=== PATIENT | female | born 1955 | race Caucasian/White ===

== ENCOUNTER 2018-06-16 00:06 | Inpatient (IN) ==
[2018-06-16] MEDS ORDERED: Naloxone 0.4 MG/ML INJ IVP PRN (03:57)
--- NOTE | 2018-06-16 04:03 | Internal Med History&Physical ---
Date of Encounter: 06/16/18 Time of Encounter: 04:03 Internal Medicine - H&P: HPI Chief complaint: Hypoxemia/lower extremity edema History of present illness: Ms. Abad is a 62 year old female with a past medical history of COPD who initially presented to [facility] with complaints of 3 weeks of shortness of breath and lower extremity edema.. On arrival patient was noted to be hypoxemic with O2 saturation of 55% on room air. Patient was immediately placed on BiPAP with improvement in O2 saturations to 90%. Found to have a BNP 24,000. X-ray results showed evidence of pulmonary vascular congestion and early fluid overload. Patient was given one-time dose of Lasix 20 mg and Kayexalate for a hyperkalemia of 6.0. Patient does report previous 20 pack smoking history. She continues to smoke 7-8 cigarettes per day. Patient admits to drinking 6-8 beers daily. Patient also reports poor appetite and difficulty swallowing. Patient otherwise denies any fever, chills, shortness of breath, nausea, vomiting, chest pain or diarrhea. On my assessment, patient appeared thin and malnourished in appearance on BiPAP in no acute respiratory distress. We took the patient off BiPAP and she did well on nasal cannula. Past Med Surg Social Fam HX - Past Medical History Medical history: COPD Psychiatric history: depression - Past Surgical History Additional surgical history: carpal tunnel surgery, septal deviation surgery, glaucoma surgery - Social History Smoking Status: Current every day smoker Packs per day: 1/2 Smokeless Tobacco Status: No Alcohol use: occasionally, recent Drug use: none - Family History Mother Hx Family Respiratory Disorders: Yes (COPD) Internal Medicine - H&P: Meds Allergy/AdvReac Type Severity Reaction Status Date / Time No Known Drug Allergies Allergy Unknown unknown Verified 06/16/18 03:07 All Systems PM: A 10-system review of systems was performed and is negative for pertinent findings except as documented above in the HPI. - Constitutional Constitutional: no chills, no fever(s), no night sweats - EENT Eyes: no change in vision, no discharge, no pain, no photophobia Ears: no ear discharge, no ear pain, no tinnitus Nose, mouth and throat: no dysphagia, no nasal discharge, no neck pain, no sore throat - Cardiovascular Cardiovascular ROS IM: no chest pain, no diaphoresis, no dyspnea, no lightheadedness, no palpitations, no syncope - Respiratory Respiratory: no cough, no dyspnea, no wheezing, no excessive phlegm production - Gastrointestinal Gastrointestinal: no abdominal pain, no diarrhea, no hematemesis, no hematochezia, no melena, no nausea, no vomiting - Genitourinary Genitourinary: no change in urinary stream, no dysuria, no flank pain, no hematuria - Musculoskeletal Musculoskeletal ROS IM: no numbness, no tingling - Integumentary Integumentary IM: no rash, no unusual bruising - Neurological Neurological ROS: no confusion, no convulsions, no focal weakness, no numbness, no tingling, no tremor(s) - Hematologic/Lymphatic Hematologic/Lymphatic: no easy bruising - Constitutional Vitals: Temp Pulse Resp BP Pulse Ox 97.8 F 74 16 106/70 95 06/16/18 02:34 06/16/18 02:34 06/16/18 02:34 06/16/18 02:34 06/16/18 02:34 Exam: General: Alert and oriented 3 Skin:Normal color, no rash, no lesions. HEENT:EOM, pupils equal, round and reactive. Cardiovascular:Normal S1 & S2, no rubs, murmurs or gallops. No JVD. Pulse regular. Lungs:Normal breath sounds, no wheezes or crackles. Abdomen:Soft, non-tender, no rigidity. Extremities: 1+ pitting edema bilaterally Neurological:Normal cognition and motor skills. Pulses:Carotid and radial pulses normal +2. Rest of the physical exam is non contributory Internal Med - H&P Results - Labs CBC & Chem 7: 06/16/18 04:31 06/16/18 04:31 - Assessment and Plan (1) Acute respiratory failure with hypoxia Current Visit: Yes Status: Acute Assessment and plan: Patient found to be hypoxemic on room air saturating and 50% in the setting of worsening lower extremity edema and increased vascular congestion on chest x-ray with a BNP of greater than 24,000. Concern for new onset congestive heart failure. -Patient taken off BiPAP and is saturating well on 4 L nasal cannula -Continue supportive care and treat for possible CHF exacerbation (2) Hyperkalemia Current Visit: Yes Status: Acute Assessment and plan: Patient found to have a potassium of 6 on arrival to the ED at [facility] . No reports of EKG changes. Patient was given Kayexalate. Repeat potassium at [facility] now 4.1. -Continue to monitor (3) Acute congestive heart failure Current Visit: Yes Status: Acute Assessment and plan: Patient's clinical presentation concerning for acute congestive heart failure of unclear etiology in the setting of increased lower extremity edema, dyspnea, elevated BNP greater than 24,000 and chest x-ray showing vascular congestion. Etiology includes ischemic cardiomyopathy given her mildly elevated troponin of 0.12, smoking and alcohol history. Patient denies any chest pain at this time and is in no respiratory distress. -Strict I's and O's; daily weights; 1500 mL fluid restriction -Patient received 2 doses of 20 mg of Lasix IV push with improvement in respiratory status. We will hold any further Lasix now given patient's small body habitus. -Echocardiogram -We will check TSH given patient's reports of palpitations -Cardiology consult Qualifiers: Heart failure type: unspecified Qualified Code(s): I50.9 - Heart failure, unspecified (4) Elevated troponin Current Visit: Yes Status: Acute Assessment and plan: Patient presented with a elevated troponin of 0.12. Subsequent troponins were 0.09 and 0.12. Patient denies any chest pains however repeat EKG here shows new T-wave inversions in leads 2 and 3. Patient given a loading dose of aspirin -We will start patient on heparin drip -Echocardiogram -Cardiology input appreciated (5) COPD (chronic obstructive pulmonary disease) Current Visit: Yes Status: Acute Assessment and plan: Patient reports 20 back smoking history. She continues to smoke 7-8 cigarettes per day no evidence of wheezing on examination. Low suspicion for exacerbation at this time. -We will continue with scheduled DuoNeb's for now Qualifiers: Emphysema type: unspecified Qualified Code(s): J43.9 - Emphysema, unspecified (6) Dysphagia Current Visit: Yes Status: Acute Assessment and plan: Patient reports decreased appetite secondary to dysphasia. -Consider speech and swallow evaluation versus barium swallow. -Patient will likely need door to door sales representative consult given she is malnourished in appearance. Qualifiers: Dysphagia type: unspecified Qualified Code(s): R13.10 - Dysphagia, unspecified (7) History of alcohol use Current Visit: Yes Status: Acute Assessment and plan: Patient reports drinking 3-6 beers a day -We will place patient on [place] protocol -Daily thiamine and B12 vitamin - Time Spent With Patient Total time spent is greater than 50% in coordination of care (as documented) at patient's floor/unit and/or counseling patient:
[2018-06-16 04:53] LABS: Basophils % 0.2 %
[2018-06-16 04:55] LABS: Hematocrit 43.8 % (35.3-44.9); Hemoglobin 14.7 g/dL (11.5-15.4); Immature Granulocytes % 0.8 % (0-4); Immature Platelets 4.7 % (1.1-6.1); Lymphocytes # 0.2 K/mcL (0.6-4.6); Mean Corpuscular HGB Conc 33.6 g/dL (31.6-35.5); Mean Corpuscular Hemoglobin 32.5 pg (28.0-33.3); Mean Corpuscular Volume 96.7 fL (83.0-100.0); Mean Platelet Volume 10.3 fL (9.4-12.4); Monocytes # 0.2 K/mcL (0.0-1.3); Monocytes % 4.3 %; Red Blood Count 4.53 M/mcL (3.82-4.97); Red Cell Distribution Width 13.7 % (11.5-14.5); Segmented Neutrophils % 91.7 %
[2018-06-16 05:10] LABS: INR 1.2; Prothrombin Time 13.4 Seconds (9.4-12.1)
[2018-06-16 05:12] LABS: Activated Partial Thrombo Time 26.1 Seconds (26.0-36.0)
[2018-06-16 05:18] LABS: Alanine Aminotransferase 43 Units/L (7-52); Albumin 3.3 g/dL (3.5-5.7); Albumin/Globulin Ratio 1.7 (1.1-2.2); Alkaline Phosphatase 55 Units/L (34-104); Aspartate Amino Transferase 60 Units/L (13-39); BUN/Creatinine Ratio 28 (6-26); Bilirubin,Total 0.8 mg/dL (0.3-1.0); Blood Urea Nitrogen 25 mg/dL (8-23); Calcium 8.4 mg/dL (8.6-10.3); Carbon Dioxide 33 mEq/L (23-29); Chloride 87 mEq/L (98-107); Glucose 162 mg/dL (70-105); Osmolality,Calculated 280 (280-300); Potassium 4.1 mEq/L (3.5-5.1); Sodium 131 mEq/L (136-145); Total Protein 5.3 g/dL (6.4-8.9); Troponin I 0.12 ng/mL (< 0.04); eGFR For Non-African Americans > 60 (> 60)
[2018-06-16 05:23] LABS: Neutrophils # 4.7 K/mcL (1.6-8.9); Platelet Count 82 K/mcL (140-400)
[2018-06-16] MEDS ORDERED: *HR* Heparin 5,000 UNIT/ML VIAL SQ SCH (06:00)
[2018-06-16] MEDS ORDERED: Aspirin 325 MG TABLET PO ONE (06:08)
[2018-06-16] MEDS ORDERED: *HR* LORazepam 2 MG/ML VIAL IVP PRN ×3 (06:28)
[2018-06-16] MEDS ORDERED: *HR* Promethazine 25 MG/ML VIAL IVP PRN (06:28)
[2018-06-16 07:33] LABS: Amylase 36 Units/L (29-103); Ethanol < 10 mg/dL (Less than 10); Lipase 24 Units/L (11-82)
[2018-06-16] MEDS ORDERED: *HR* Heparin 5,000 UNIT/ML VIAL IVP ONE (08:13)
[2018-06-16] MEDS ORDERED: *HR* Heparin 5,000 UNIT/ML VIAL IVP PRN ×2 (08:13)
[2018-06-16] MEDS ORDERED: Heparin 25,000 UNIT/250 ML D5W 25,000 UNIT/250 ML IV.SOLN IVC SCH (08:15)
[2018-06-16 08:59] LABS: Thyroid Stimulating Hormone 1.103 mcIU/mL (0.340-5.600)
[2018-06-16] MEDS ORDERED: Aspirin Enteric Coated 325 MG Tablet PO SCH (09:00)
[2018-06-16 10:04] LABS: Hematocrit 42.7 % (35.3-44.9); Hemoglobin 14.2 g/dL (11.5-15.4); Immature Platelets 4.5 % (1.1-6.1); Mean Corpuscular HGB Conc 33.3 g/dL (31.6-35.5); Mean Corpuscular Hemoglobin 32.2 pg (28.0-33.3); Mean Corpuscular Volume 96.8 fL (83.0-100.0); Red Blood Count 4.41 M/mcL (3.82-4.97); Red Cell Distribution Width 13.9 % (11.5-14.5)
[2018-06-16 10:10] LABS: INR 1.1; Prothrombin Time 12.9 Seconds (9.4-12.1)
[2018-06-16 10:11] LABS: Heparin anti-factor XA UFH 0.05 IU/mL (0.30-0.70)
[2018-06-16] MEDS: Folic Acid 1 MG TABLET PO SCH (10:11)
[2018-06-16] MEDS: Thiamine (B-1) 100 MG TABLET PO SCH (10:11)
[2018-06-16] MEDS: Vitamin B Complex/Vit C/Vit E 1 EACH TABLET PO SCH (10:11)
[2018-06-16] MEDS: Ipratropium/Albuterol Neb 3 ML IH SCH ×5 (10:19→23:45)
--- NOTE | 2018-06-16 11:11 | Cardiology Consult Note ---
Date of Encounter: 06/16/18 Time of Encounter: 09:00 Assessment and Plan (1) Acute respiratory failure with hypoxia Current Visit: Yes Status: Acute Suspect dyspnea most likely related to significant underlying lung disease. Further tx per primary service. Will schedule for echocardiogram to evaluate LV/RV function, pulmonary pressures. Continue gentle diuresis. (2) Palpitations Current Visit: Yes Status: Acute Will monitor for arrhythmias on telemetry. (3) Elevated troponin Current Visit: Yes Status: Acute Suspect demand ischemia in setting of profound hypoxia. Doubt ACS. Will review echocardiogram. (4) COPD (chronic obstructive pulmonary disease) Current Visit: Yes Status: Chronic Further tx per primary service. Qualifiers: Emphysema type: unspecified Qualified Code(s): J43.9 - Emphysema, unspecified Discussion w patient/family: The assessment and plan as outlined above was discussed with the patient and/or family members who expressed understanding and agreement. All questions were answered. Thank you for involving us in the care of your patient. Please call with any questions. History of Present Illness Consult date: 06/16/18 Requesting physician: Iram Nina Consult reason: possible CHF Chief complaint: dyspnea, LE edema History of present illness: Ms. Abad is a 62 year old female with hx COPD presents as transfer from [facility] for evaluation of dyspnea. Pt states that yesterday she "just couldn't stand up, too weak." drove her to [facility] where pt was found to be profoundly hypoxic with sats of 55% on RA per reports. Pt placed on biPAP with improvement of sats to 90%. BNP noted to be elevated to 24,000, K 6.0. CXR repoted to have pulmonary vascular congestion and early fluid overload. Pt diuresed, given Kayexalate and transferred for further evaluation/tx. BNP on arrival here 1715. Pt states no improvement in LE edema or dyspnea with Lasix. Pt has noted worsening LE edema over past 3 weeks. Denies weight gain, CP, orthopnea, PND. Has also noted palpitations, feeling heart race at times. No associated lightheadedness, syncope. Denies prior cardiac history, testing. Past Med Surg Social Fam HX - Past Medical History Medical history: COPD Psychiatric history: depression - Past Surgical History Additional surgical history: carpal tunnel surgery, septal deviation surgery, glaucoma surgery - Social History Smoking Status: Current every day smoker Packs per day: 1/2 Smokeless Tobacco Status: No Alcohol use: occasionally, recent Drug use: none - Family History Mother Hx Family Respiratory Disorders: Yes (COPD) Medications and Allergies Allergy/AdvReac Type Severity Reaction Status Date / Time No Known Drug Allergies Allergy Unknown unknown Verified 06/16/18 03:07 All Systems Review: The remainder of the systems were reviewed and are negative - Cardiovascular Cardiovascular: as per HPI Physical Examination Vital Signs, Last 4 Hours Temp Pulse Resp BP Pulse Ox 06/16/18 07:15 98.5 F 92 18 109/72 99 General: Other (pt with conversational dyspnea, mild resp distress on NC, thin, appears chronically ill) HEENT: Atraumatic, Normocephaly, Mucus Membranes Moist Neck: No JVD, Normal carotid pulses Cardiac: Reg Rate and Rhythm, Normal S1 and S2, No Murmur Lungs: Other (diffuse exp wheezes throughout lung pulliam with decreased BS) Neuro: Alert and responsive, No focal deficits noted Abdomen: Soft, Non-Tender Skin: No rashes noted on visualized skin Musculoskeletal: No Chest Wall Tenderness Extremities: No Clubbing, No Cyanosis, Other (1+ pitting b/l LE edema to mid calf) Results 06/16/18 09:48 06/16/18 04:31 Lab Results 06/16/18 06/16/18 06/16/18 04:31 04:31 04:31 WBC 5.1 Hgb 14.7 Hct 43.8 Plt Count 82 L INR 1.2 APTT 26.1 Sodium 131 L Potassium 4.1 Chloride 87 L Carbon Dioxide 33 H BUN 25 H Creatinine 0.89 Glucose 162 H Calcium 8.4 L Total Bilirubin 0.8 AST 60 H ALT 43 Alkaline Phosphatase 55 Troponin I 0.12 H* B-Natriuretic Peptide Amylase Lipase TSH 1.103 06/16/18 06/16/18 06/16/18 06:45 08:25 09:48 WBC 6.1 Hgb 14.2 Hct 42.7 Plt Count 81 L INR APTT Sodium Potassium Chloride Carbon Dioxide BUN Creatinine Glucose Calcium Total Bilirubin AST ALT Alkaline Phosphatase Troponin I B-Natriuretic Peptide 1715 H Amylase 36 Lipase 24 TSH 06/16/18 09:48 WBC Hgb Hct Plt Count INR 1.1 APTT Sodium Potassium Chloride Carbon Dioxide BUN Creatinine Glucose Calcium Total Bilirubin AST ALT Alkaline Phosphatase Troponin I B-Natriuretic Peptide Amylase Lipase TSH - EKG Interpretation EKG results cardiology: personally reviewed (NSR with PACs, nonspecific ST-T wave changes in inferior leads- cannot exclude ischemia) Consult Discharge Plan - Plan Referrals: Dina Connors MD [Primary Care Provider] - (Unable to schedule follow up appointment due to office being closed on the weekend. Please call Monday to schedule hospital follow for 7-10 days from date of discharge. )
--- NOTE | 2018-06-16 11:28 | Internal Med Progress Note ---
Hospitalist Progress Note - Encounter Date of Encounter: 06/16/18 Time of Encounter: 11:47 - Subjective Interval History: at bedside. Patient states she is breathing better but fatigued from days of SOB. Denies CP, denies palpitations, n/v. Has some stomach upset. - Exam Vitals: Temp Pulse Resp BP Pulse Ox 98.5 F 92 18 109/72 99 06/16/18 07:15 06/16/18 07:15 06/16/18 07:15 06/16/18 07:15 06/16/18 07:15 Exam: General: Alert and oriented 3 Skin:Normal color, no rash, no lesions. HEENT:EOM, pupils equal, round and reactive. Cardiovascular:Normal S1 & S2, no rubs, murmurs or gallops. No JVD. Pulse regular. Lungs:Normal breath sounds, no wheezes or crackles. Abdomen:Soft, non-tender, no rigidity. Extremities: 1+ pitting edema bilaterally Neurological:Normal cognition and motor skills. Pulses:Carotid and radial pulses normal +2. Rest of the physical exam is non contributory - Assessment and Plan (1) Acute respiratory failure with hypoxia Current Visit: Yes Status: Acute Assessment and Plan: Patient found to be hypoxemic on room air saturating and 50% in the setting of worsening lower extremity edema and increased vascular congestion on chest x-ray with a BNP of greater than 24,000. Concern for new onset congestive heart fail ure. -Patient taken off BiPAP and is saturating well on 4 L nasal cannula -Continue supportive care and treat for possible CHF exacerbation Also COPD component - Continue IV Lasix, - Prednisone, Duo Nebs - Fluid restriction diet - Cardiology following. (2) Hyperkalemia Current Visit: Yes Status: Acute Assessment and Plan: Patient found to have a potassium of 6 on arrival to the ED at [facility] . No rep orts of EKG changes. Patient was given Kayexalate. Repeat potassium at [facility] now 4.1. -Continue to monitor (3) Acute congestive heart failure Current Visit: Yes Status: Acute Assessment and Plan: Patient's clinical presentation concerning for acute congestive heart failure of unclear etiology in the setting of increased lower extremity edema, dyspnea, elevated BNP greater than 24,000 and chest x-ray showing vascular congestion. Etiology includes ischemic cardiomyopathy given her mildly elevated troponin of 0.12, smoking and alcohol history. Patient denies any chest pain at this time and is in no respiratory distress. -Strict I's and O's; daily weights; 1500 mL fluid restriction -Patient received 2 doses of 20 mg of Lasix IV push with improvement in respiratory status. Will continue Lasix tonight. -Echocardiogram -Cardiology consult (4) Elevated troponin Current Visit: Yes Status: Acute Assessment and Plan: Patient presented with a elevated troponin of 0.12. Subsequent troponins were 0.09 and 0.12. Patient denies any chest pains however repeat EKG here shows new T-wave inversions in leads 2 and 3. Patient given a loading dose of aspirin -We will start patient on heparin drip - Echocardiogram -Cardiology input appreciated (5) COPD (chronic obstructive pulmonary disease) Current Visit: Yes Status: Chronic Assessment and Plan: Patient reports 20 back smoking history. She continues to smoke 7-8 cigarettes per day no evidence of wheezing on examination. Low suspicion for exacerbation at this time. -We will continue with scheduled DuoNeb's for now (6) Dysphagia Current Visit: Yes Status: Acute Assessment and Plan: Patient reports decreased appetite secondary to dysphasia. -Consider speech and swallow evaluation versus barium swallow. -Patient will likely need central office maintainer consult given she is malnourished in appearance. (7) History of alcohol use Current Visit: Yes Status: Acute Assessment and Plan: Patient reports drinking 3-6 beers a day -We will place patient on [place] protocol -Daily thiamine and B12 vitamin - Time Spent with Patient Total time spent is greater than 50% in coordination of care (as documented) at patient's floor/unit and/or counseling patient: Internal Medicine: Result - Labs CBC & Chem 7: 06/16/18 09:48 06/16/18 04:31 Labs: Short CBC 06/16/18 06/16/18 Range/Units 04:31 09:48 WBC 5.1 6.1 (4.3-11.1) K/mcL Hgb 14.7 14.2 (11.5-15.4) g/dL Hct 43.8 42.7 (35.3-44.9) % Plt Count 82 L 81 L (140-400) K/mcL Neutrophils # 4.7 (1.6-8.9) K/mcL BMP 06/16/18 04:31 Sodium 131 L Potassium 4.1 Chloride 87 L Carbon Dioxide 33 H BUN 25 H Creatinine 0.89 Glucose 162 H Calcium 8.4 L Cardiac Enzymes 06/16/18 Range/Units 04:31 Troponin I 0.12 H* (< 0.04) ng/mL Liver Function 06/16/18 Range/Units 04:31 Total Bilirubin 0.8 (0.3-1.0) mg/dL AST 60 H (13-39) Units/L ALT 43 (7-52) Units/L Alkaline Phosphatase 55 (34-104) Units/L Albumin 3.3 L (3.5-5.7) g/dL - ABG Interpretation ABG results: PT/INR, D-dimer PT 12.9 Seconds (9.4-12.1) H 06/16/18 09:48 Consult Discharge Plan - Plan Referrals: Dina Connors MD [Primary Care Provider] - (Unable to schedule follow up appointment due to office being closed on the weekend. Please call Monday to schedule hospital follow for 7-10 days from date of discharge. ) (3) Acute congestive heart failure Qualifiers: Heart failure type: unspecified Qualified Code(s): I50.9 - Heart failure, unspecified (5) COPD (chronic obstructive pulmonary disease) Qualifiers: Emphysema type: unspecified Qualified Code(s): J43.9 - Emphysema, unspecified (6) Dysphagia Qualifiers: Dysphagia type: unspecified Qualified Code(s): R13.10 - Dysphagia, unspecified
[2018-06-16] MEDS: predniSONE 20 MG TABLET PO SCH (12:41)
[2018-06-16] MEDS: Furosemide 20 MG/2 ML VIAL IVP SCH (20:14)
[2018-06-17] MEDS: Ipratropium/Albuterol Neb 3 ML IH SCH ×5 (04:20→20:11)
[2018-06-17 05:43] LABS: Mean Corpuscular Volume 99.8 fL (83.0-100.0)
[2018-06-17 05:45] LABS: Hematocrit 40.6 % (35.3-44.9); Hemoglobin 13.4 g/dL (11.5-15.4); Immature Granulocytes % 0.6 % (0-4); Immature Platelets 4.9 % (1.1-6.1); Lymphocytes # 0.2 K/mcL (0.6-4.6); Lymphocytes % 2.3 %; Mean Corpuscular Hemoglobin 32.9 pg (28.0-33.3); Mean Platelet Volume 9.9 fL (9.4-12.4); Monocytes # 1.1 K/mcL (0.0-1.3); Monocytes % 12.4 %; Neutrophils # 7.4 K/mcL (1.6-8.9); Red Blood Count 4.07 M/mcL (3.82-4.97); Red Cell Distribution Width 14.5 % (11.5-14.5); Segmented Neutrophils % 84.7 %
[2018-06-17 05:46] LABS: Platelet Count 77 K/mcL (140-400)
[2018-06-17 06:03] LABS: BUN/Creatinine Ratio 30 (6-26); Blood Urea Nitrogen 27 mg/dL (8-23); Calcium 8.8 mg/dL (8.6-10.3); Carbon Dioxide 39 mEq/L (23-29); Chloride 88 mEq/L (98-107); Glucose 169 mg/dL (70-105); Osmolality,Calculated 287 (280-300); Potassium 3.7 mEq/L (3.5-5.1); Sodium 134 mEq/L (136-145); eGFR For Non-African Americans > 60 (> 60)
--- NOTE | 2018-06-17 10:41 | Event Note ---
Date of Encounter: 06/17/18 Time of Encounter: 10:37 - Cardiology Event Note TTE with LVEF 60%. Mild left ventricular diastolic dysfunction. Mildly dilated right ventricle with mild RV hypokinesis. Mild to moderate biatrial dilatation. Severely calcified aortic valve with moderate-severe aortic stenosis and moderate aortic regurgitation. Mild aortic root dilatation ascending aorta dilatation 3.8 cm. Moderate to severe tricuspid regurgitation. Severe pulmonary hypertension, RVSP 92 mmHg. All wall segments showed normal motion. Discussed and reviewed with Dr.Jennifer Hussein, severe pulmonary hypertension likely culprit of lower extremity edema. Recommend gentle diuresis. Avoid over diuresis and hypotension. Regarding moderate-severe , no urgent indication for valve replacement at this time, can be managed in outpatient setting. Cardiology will sign off, will arrange outpatient follow up.
[2018-06-17] MEDS: predniSONE 20 MG TABLET PO SCH (10:50)
[2018-06-17] MEDS: Vitamin B Complex/Vit C/Vit E 1 EACH TABLET PO SCH (10:51)
[2018-06-17] MEDS: Thiamine (B-1) 100 MG TABLET PO SCH (10:51)
[2018-06-17] MEDS: Furosemide 20 MG/2 ML VIAL IVP SCH ×2 (10:51→20:35)
[2018-06-17] MEDS: Folic Acid 1 MG TABLET PO SCH (10:51)
--- NOTE | 2018-06-17 16:10 | Internal Med Progress Note ---
Hospitalist Progress Note - Encounter Date of Encounter: 06/17/18 Time of Encounter: 16:08 - Subjective Interval History: No acute events. at bedside. Reports she will desat with minimal activity but breathing is overall better than yesterday. Patient admits to SOB on minimal exertion. Denies CP, N/V, palpitations, diaphoresis. - Exam Vitals: Temp Pulse Resp BP Pulse Ox 98.3 F 93 16 119/73 96 06/17/18 12:04 06/17/18 12:04 06/17/18 12:04 06/17/18 12:04 06/17/18 12:04 Exam: General: Alert and oriented 3 Skin:Normal color, no rash, no lesions. HEENT:EOM, pupils equal, round and reactive. Cardiovascular: RRR, no mrg Lungs:Normal breath sounds, faint end exp wheezing. Abdomen:Soft, non-tender, no rigidity. Extremities: 1+ pitting edema bilaterally Neurological:Normal cognition and motor skills. Pulses: Carotid and radial pulses normal +2. - Assessment and Plan (1) Acute respiratory failure with hypoxia Current Visit: Yes Status: Acute Assessment and Plan: Patient found to be hypoxemic on room air saturating and 50% in the setting of worsening lower extremity edema and increased vascular congestion on chest x- ray. Symptoms and signs consistent with COPD and CHF exacerbations. Patient taken off BiPAP and is saturating well on 4 L nasal cannula. Echocardiogram with severe pulmonary hypertension RVSP 92 mmHg, and severely calcified aortic valve with mod/severe aortic stenosis and mod aortic regurgitation. Cardiology did evaluate patient as well and will sign off since likely this is from severe pulm htn. - Prednisone, Duo Nebs - Fluid restriction diet - Continue IV Lasix as BP and renal function tolerates. (2) Hyperkalemia Current Visit: Yes Status: Acute Assessment and Plan: Resolved (3) Acute congestive heart failure Current Visit: Yes Status: Acute Assessment and Plan: Plan as above. (4) Elevated troponin Current Visit: Yes Status: Acute Assessment and Plan: Patient presented with a elevated troponin of 0.12. Subsequent troponins were 0.09 and 0.12. Patient denies any chest pains however repeat EKG here shows new T-wave inversions in leads 2 and 3. Patient given a loading dose of aspirin Likely not ACS and so heparin drip discontinued. Echocardiogram with severe pulmonary hypertension RVSP 92 mmHg, and severely calcified aortic valve with mod/severe aortic stenosis and mod aortic regurgitation. Continue treatment of CHF exacerbation. (5) COPD (chronic obstructive pulmonary disease) Current Visit: Yes Status: Chronic Assessment and Plan: Does have some wheezing on exam today, continue Prednisone and Duo Nebs (6) Dysphagia Current Visit: Yes Status: Acute Assessment and Plan: Patient reports decreased appetite secondary to dysphasia. -Swallow eval -Nutrition consult (7) History of alcohol use Current Visit: Yes Status: Acute Assessment and Plan: Patient reports drinking 3-6 beers a day -Daily thiamine and B12 vitamin - Continue CIWA protocol and monitoring No signs of withdrawal currently - Time Spent with Patient Total time spent is greater than 50% in coordination of care (as documented) at patient's floor/unit and/or counseling patient: Internal Medicine: Result - Labs CBC & Chem 7: 06/17/18 04:36 06/17/18 04:36 Labs: Short CBC 06/17/18 Range/Units 04:36 WBC 8.7 (4.3-11.1) K/mcL Hgb 13.4 (11.5-15.4) g/dL Hct 40.6 (35.3-44.9) % Plt Count 77 L (140-400) K/mcL Neutrophils # 7.4 (1.6-8.9) K/mcL BMP 06/17/18 04:36 Sodium 134 L Potassium 3.7 Chloride 88 L Carbon Dioxide 39 H BUN 27 H Creatinine 0.91 Glucose 169 H Calcium 8.8 - ABG Interpretation ABG results: PT/INR, D-dimer PT 12.9 Seconds (9.4-12.1) H 06/16/18 09:48 Consult Discharge Plan - Plan Referrals: Dina Connors MD [Primary Care Provider] - (Unable to schedule follow up appointment due to office being closed on the weekend. Please call Monday to schedule hospital follow for 7-10 days from date of discharge. ) (3) Acute congestive heart failure Qualifiers: Heart failure type: unspecified Qualified Code(s): I50.9 - Heart failure, unspecified (5) COPD (chronic obstructive pulmonary disease) Qualifiers: Emphysema type: unspecified Qualified Code(s): J43.9 - Emphysema, unspecified (6) Dysphagia Qualifiers: Dysphagia type: unspecified Qualified Code(s): R13.10 - Dysphagia, unspe cified
[2018-06-18] MEDS: Ipratropium/Albuterol Neb 3 ML IH SCH ×6 (00:25→20:08)
[2018-06-18 01:35] LABS: Mean Corpuscular Hemoglobin 32.8 pg (28.0-33.3); Red Cell Distribution Width 14.6 % (11.5-14.5)
[2018-06-18 01:37] LABS: Hematocrit 39.6 % (35.3-44.9); Hemoglobin 13.1 g/dL (11.5-15.4); Immature Granulocytes % 0.4 % (0-4); Immature Platelets 4.3 % (1.1-6.1); Lymphocytes # 0.1 K/mcL (0.6-4.6); Lymphocytes % 1.6 %; Mean Corpuscular HGB Conc 33.1 g/dL (31.6-35.5); Mean Corpuscular Volume 99.2 fL (83.0-100.0); Mean Platelet Volume 9.8 fL (9.4-12.4); Monocytes # 0.8 K/mcL (0.0-1.3); Monocytes % 10.7 %; Red Blood Count 3.99 M/mcL (3.82-4.97); Segmented Neutrophils % 87.3 %
[2018-06-18 01:40] LABS: Neutrophils # 6.7 K/mcL (1.6-8.9); Platelet Count 82 K/mcL (140-400)
[2018-06-18 01:55] LABS: BUN/Creatinine Ratio 27 (6-26); Blood Urea Nitrogen 21 mg/dL (8-23); Calcium 8.7 mg/dL (8.6-10.3); Carbon Dioxide 44 mEq/L (23-29); Chloride 87 mEq/L (98-107); Glucose 196 mg/dL (70-105); Osmolality,Calculated 290 (280-300); Potassium 3.5 mEq/L (3.5-5.1); Sodium 136 mEq/L (136-145); eGFR For Non-African Americans > 60 (> 60)
[2018-06-18 02:18] LABS: ABG Base Excess 17 mEq/L (-2 to 3); ABG HCO3 48 mEq/L (21-27); ABG Oxygen Saturation 98 % (95-98); ABG PCO2 86 mmHg (35-45); ABG PH 7.35 pH Units (7.32-7.45); ABG PO2 118 mmHg (85-104); ABG TCO2 > 50 mEq/L (20-26); Blood Gas Modality BiLevel; Blood Gas PEEP 7 cm H2O
[2018-06-18] MEDS: Vitamin B Complex/Vit C/Vit E 1 EACH TABLET PO SCH (09:20)
[2018-06-18] MEDS: predniSONE 20 MG TABLET PO SCH (09:20)
[2018-06-18] MEDS: Folic Acid 1 MG TABLET PO SCH (09:20)
[2018-06-18] MEDS: Thiamine (B-1) 100 MG TABLET PO SCH (09:20)
--- NOTE | 2018-06-18 13:57 | Internal Med Progress Note ---
<Luis Emery - Last Filed: 06/18/18 13:53> Hospitalist Progress Note - Encounter Date of Encounter: 06/18/18 Time of Encounter: 09:00 - Subjective Interval History: Patient sitting in bed. Reports her shortness of breath is improved and so was her lower extremity edema. She is requiring 4 L of oxygen via nasal cannula. She reports she is never had history of COPD, or ever used oxygen. Her last visit to her PCP was 5 years ago. I asked patient if she would be okay with going home on oxygen and BiPAP however she was very hesitant stating, "I want this to be very simple, with simple person." Patient is afraid of the costs of these. I reported to patient that lets gather all her information about costs and what she will qualify for in terms of BiPAP and oxygen and then she has the final right to make a decision about what she wants. - Exam Vitals: Temp Pulse Resp BP Pulse Ox 97.8 F 104 18 124/72 92 06/18/18 11:19 06/18/18 11:19 06/18/18 11:19 06/18/18 11:19 06/18/18 11:19 Exam: General: pleasant, without distress Cardiovascualr: Sinus tachycardia, with no murmur, absent gallops or rubs, 2+ bilateral pedal edema, radial pulses 2 out of 4 Lungs: Severely diminished breath sounds bilaterally, expiratory wheezing, conversational dyspnea Abdomen: Soft nontender, nondistended positive bowel sounds, absent hepatomegaly Skin: warm and dry, absent rash, absent open wounds and nodules, bilateral lower extremity erythema likely vascular changes. MSK: absent clubbing, cyanosis, joints without swelling Neuro: Cranial nerves II through XII intact, UE and LE sensation equal bilaterally, UE and LEstrength 5/5, alert oriented 3, Psych: good insight and judgment - Assessment and Plan (1) Acute respiratory failure with hypoxia Current Visit: Yes Status: Acute Assessment and Plan: Patient has acute respiratory failure with hypoxia and hypercapnia secondary to acute CHF exacerbation and COPD exacerbation Patient reports before admission she had severe dyspnea and also difficulty get ting up and down the stairs of her house which she was able to do easily in the past. At baseline patient was not on oxygen at home. She has extensive smoking history. Currently she is requiring 4 L oxygen. Plan: We will continue DuoNeb's, steroids. lasix was held because patient is developing metabolic alkalosis. (2) Acute congestive heart failure Current Visit: Yes Status: Acute Assessment and Plan: Patient has acute diastolic heart failure Echocardiogram shows LVEF of 60% with mildly dilated right ventricle with mild right ventricular hypokinesis and mild to moderate biatrial dilation. Severely calcified aortic valve with moderate to severe aortic stenosis and moderate aortic regurgitation. Furthermore patient has moderate to severe tricuspid regurgitation and severe pulmonary hypertension. Cardiology evaluated patient and recommended gentle diuresis and no further cardiology intervention inpatient. Patient can follow-up for valvular dysfunction in the outpatient setting. (3) Elevated troponin Current Visit: Yes Status: Acute Assessment and Plan: Secondary to demand ischemia Initial troponin was 0.09 and repeat was 0.12 and then 0.12. EKG showed new T-wave inversions in leads 2 and 3. Patient was in a 60 started on heparin drip which was discontinued. (4) COPD (chronic obstructive pulmonary disease) Current Visit: Yes Status: Acute Assessment and Plan: Patient likely has underlying COPD as she is a long-term smoker and has underlying respiratory acidosis from hypercapnia We will continue steroids, oxygen supplementation, nebulizers. We will start patient on Levaquin 3 days as well as obtain a oxygen qualification test and a BiPAP qualification test (5) Dysphagia Current Visit: Yes Status: Acute Assessment and Plan: Patient reports decreased appetite secondary to dysphagia. She likely has severe protein calorie malnutrition as her BMI is 16.9. She is tolerating her diet okay. We will await nutrition consult and order a speech consult. (6) Metabolic alkalosis with respiratory acidosis Current Visit: Yes Status: Acute Assessment and Plan: Reviewing patient's ABG and BMP this morning. Patient has a normal pH of 7.35 with a PCO2 of 86, and a bicarbonate of 44. I believe patient has respiratory acidosis and compensation with metabolic alkalosis. Patient's renal function is stable and likely she is not developing a contraction alkalosis as her chloride has been stable and not worsening. will repeat BMP. (7) Pulmonary hypertension Current Visit: Yes Status: Acute Assessment and Plan: On echocardiogram patient has severe pulmonary hypertension Patient Multiple etiology is probably hypertension including COPD, heart failure. There is also concern of pulmonary embolism which should be ruled out. We will order a VQ scan. - Time Spent with Patient Total time spent is greater than 50% in coordination of care (as documented) at patient's floor/unit and/or counseling patient: Internal Medicine: Result - Labs CBC & Chem 7: 06/18/18 01:17 06/18/18 01:17 Labs: Short CBC 06/18/18 Range/Units 01:17 WBC 7.7 (4.3-11.1) K/mcL Hgb 13.1 (11.5-15.4) g/dL Hct 39.6 (35.3-44.9) % Plt Count 82 L (140-400) K/mcL Neutrophils # 6.7 (1.6-8.9) K/mcL BMP 06/18/18 01:17 Sodium 136 Potassium 3.5 Chloride 87 L Carbon Dioxide 44 H* BUN 21 Creatinine 0.78 Glucose 196 H Calcium 8.7 - ABG Interpretation ABG results: ABG ABG pH 7.35 pH Units (7.32-7.45) 06/18/18 02:14 ABG pCO2 86 mmHg (35-45) H* 06/18/18 02:14 ABG pO2 118 mmHg (85-104) H 06/18/18 02:14 ABG O2 Saturation 98 % (95-98) 06/18/18 02:14 PT/INR, D-dimer PT 12.9 Seconds (9.4-12.1) H 06/16/18 09:48 Consult Discharge Plan - Plan Referrals: Dina Connors MD [Primary Care Provider] - () <Dasha Henriquez - Last Filed: 06/18/18 19:26> Hospitalist Progress Note - Encounter Date of Encounter: 06/18/18 - Exam Vitals: Temp Pulse Resp BP Pulse Ox 99.0 F 109 18 109/61 90 06/18/18 17:03 06/18/18 17:03 06/18/18 17:03 06/18/18 17:03 06/18/18 17:03 - Assessment and Plan (1) Acute respiratory failure with hypoxia Current Visit: Yes Status: Acute (2) Hyperkalemia Current Visit: Yes Status: Acute (3) Acute congestive heart failure Current Visit: Yes Status: Acute (4) Elevated troponin Current Visit: Yes Status: Acute (5) COPD (chronic obstructive pulmonary disease) Current Visit: Yes Status: Acute (6) Dysphagia Current Visit: Yes Status: Acute (7) History of alcohol use Current Visit: Yes Status: Acute - Time Spent with Patient Total time spent is greater than 50% in coordination of care (as documented) at patient's floor/unit and/or counseling patient: Internal Medicine: Result - Labs CBC & Chem 7: 06/18/18 01:17 06/18/18 01:17 Labs: Short CBC 06/18/18 Range/Units 01:17 WBC 7.7 (4.3-11.1) K/mcL Hgb 13.1 (11.5-15.4) g/dL Hct 39.6 (35.3-44.9) % Plt Count 82 L (140-400) K/mcL Neutrophils # 6.7 (1.6-8.9) K/mcL BMP 06/18/18 01:17 Sodium 136 Potassium 3.5 Chloride 87 L Carbon Dioxide 44 H* BUN 21 Creatinine 0.78 Glucose 196 H Calcium 8.7 - ABG Interpretation ABG results: ABG ABG pH 7.35 pH Units (7.32-7.45) 06/18/18 02:14 ABG pCO2 86 mmHg (35-45) H* 06/18/18 02:14 ABG pO2 118 mmHg (85-104) H 06/18/18 02:14 ABG O2 Saturation 98 % (95-98) 06/18/18 02:14 PT/INR, D-dimer PT 12.9 Seconds (9.4-12.1) H 06/16/18 09:48 - Attending Attestation I examined this patient and my medical decision-making was reviewed with the Resident Physician. I agree with the documented findings, disposition and treatment plan as described except to the extent set forth below. <Luis Emery - Last Filed: 06/18/18 13:53> (2) Acute congestive heart failure Qualifiers: Heart failure type: unspecified Qualified Code(s): I50.9 - Heart failure, unspecified (4) COPD (chronic obstructive pulmonary disease) Qualifiers: Emphysema type: unspecified Qualified Code(s): J43.9 - Emphysema, unspecified (5) Dysphagia Qualifiers: Dysphagia type: unspecified Qualified Code(s): R13.10 - Dysphagia, unspecified <Dasha Henriquez - Last Filed: 06/18/18 19:26> (3) Acute congestive heart failure Qualifiers: Heart failure type: unspecified Qualified Code(s): I50.9 - Heart failure, unspecified (5) COPD (chronic obstructive pulmonary disease) Qualifiers: Emphysema type: unspecified Qualified Code(s): J43.9 - Emphysema, unspecified (6) Dysphagia Qualifiers: Dysphagia type: unspecified Qualified Code(s): R13.10 - Dysphagia, unspecified
[2018-06-18] MEDS: levoFLOXacin 500 MG TABLET PO SCH (15:26)
--- NOTE | 2018-06-18 16:24 | Electrocardiograph Report ---
[place] [id number] Test Date: 2018-06-16 Pat Name: Shweta Abad Department: 113 Room: 3B32 Gender: F Dietary Assistant: : 1955 Requested By: Yayo Rios Order Number: [id number] Reading MD: Aroldo Galicia Measurements Intervals Delight Rate: 96 P: 80 OR: 138 QRS: 119 QRSD: 102 T: -67 QT: 374 QTc: 428 Interpretive Statements SINUS RHYTHM WITH OCCASIONAL SUPRAVENTRICULAR PREMATURE COMPLEXES POSSIBLE LEFT ATRIAL ENLARGEMENT PATTERN CONSISTENT WITH PULMONARY DISEASE POSSIBLE RIGHT VENTRICULAR HYPERTROPHY ST DEVIATION AND MODERATE T-WAVE ABNORMALITY, CONSIDER INFERIOR ISCHEMIA Electronically Signed On 06-18-2018 16:22:26 EDT by Aroldo Galicia
[2018-06-19] MEDS: Ipratropium/Albuterol Neb 3 ML IH SCH ×7 (00:17→23:55)
[2018-06-19 05:31] LABS: VBG HCO3 49 mEq/L (21-27); VBG PCO2 75 mmHg (41-51); VBG PH 7.42 pH Units (7.32-7.42); VBG PO2 187 mmHg (25-50)
[2018-06-19 05:39] LABS: BUN/Creatinine Ratio 33 (6-26); Blood Urea Nitrogen 17 mg/dL (8-23); Calcium 9.1 mg/dL (8.6-10.3); Carbon Dioxide > 45 mEq/L (23-29); Chloride 84 mEq/L (98-107); Glucose 112 mg/dL (70-105); Osmolality,Calculated 284 (280-300); Potassium 3.8 mEq/L (3.5-5.1); Sodium 136 mEq/L (136-145); eGFR For Non-African Americans > 60 (> 60)
[2018-06-19] MEDS ORDERED: *HR* LORazepam 2 MG/ML VIAL IVP ONE (05:49)
[2018-06-19] MEDS: Folic Acid 1 MG TABLET PO SCH (08:24)
--- NOTE | 2018-06-19 09:59 | Internal Med Progress Note ---
<Luis Emery - Last Filed: 06/19/18 09:56> Hospitalist Progress Note - Encounter Date of Encounter: 06/19/18 Time of Encounter: 09:56 - Subjective Interval History: Patient according to nursing was fighting the BiPAP all night. Around 6 AM she was given lorazepam 2 mg IV and during my encounter with the patient is morning she was very somnolent and difficult to arouse on BiPAP. She did follow commands with squeezing my hand but it was difficult to understand her. - Exam Vitals: Temp Pulse Resp BP Pulse Ox 97.8 F 93 18 108/69 92 06/19/18 07:40 06/19/18 07:40 06/19/18 07:40 06/19/18 07:40 06/19/18 07:40 Exam: General: Somnolent, drowsy Cardiovascualr: Sinus tachycardia, with no murmur, absent gallops or rubs, 1+ bilateral pedal edema, radial pulses 2 out of 4 Lungs: Severely diminished breath sounds bilaterally, expiratory wheezing, Abdomen: Soft nontender, nondistended positive bowel sounds, absent hepatomegaly Skin: warm and dry, absent rash, absent open wounds and nodules, bilateral lower extremity erythema likely vascular changes. MSK: absent clubbing, cyanosis, joints without swelling Neuro: Cranial nerves II through XII intact, UE and LE sensation equal bilaterally, UE and LEstrength 5/5, Psych: Somnolent, drowsy - Assessment and Plan (1) Acute respiratory failure with hypoxia Current Visit: Yes Status: Acute Assessment and Plan: Patient has acute respiratory failure with hypoxia and hypercapnia secondary to acute CHF exacerbation and COPD exacerbation Patient reports before admission she had severe dyspnea and also difficulty getting up and down the stairs of her house which she was able to do easily in the past. At baseline patient was not on oxygen at home. She has extensive smoking history. Currently she is requiring 3 L oxygen. Patient is on BiPAP. Plan is to wean down supplemental oxygen and maintain an O2 saturation of 88%. We will continue DuoNeb's, steroids. Holding Lasix due to metabolic alkalosis and increasing bicarbonate. (2) Acute congestive heart failure Current Visit: Yes Status: Acute Assessment and Plan: Patient has acute diastolic heart failure Echocardiogram shows LVEF of 60% with mildly dilated right ventricle with mild right ventricular hypokinesis and mild to moderate biatrial dilation. Severely calcified aortic valve with moderate to severe aortic stenosis and moderate aortic regurgitation. Furthermore patient has moderate to severe tricuspid regurgitation and severe pulmonary hypertension. Cardiology evaluated patient and recommended gentle diuresis and no further cardiology intervention inpatient. Patient can follow-up for valvular dysfunction in the outpatient setting. plan: Patient has had significant reduction in her lower extremity edema. Currently we will hold Lasix due to development of contraction alkalosis. (3) Elevated troponin Current Visit: Yes Status: Acute Assessment and Plan: Secondary to demand ischemia Initial troponin was 0.09 and repeat was 0.12 and then 0.12. EKG showed new T-wave inversions in leads 2 and 3. Patient was in a 60 started on heparin drip which was discontinued (4) COPD (chronic obstructive pulmonary disease) Current Visit: Yes Status: Acute Assessment and Plan: Patient likely has underlying COPD as she is a long-term smoker and has underlying respiratory acidosis from hypercapnia We will continue steroids, oxygen supplementation, nebulizers. and levaquin (5) Dysphagia Current Visit: Yes Status: Acute Assessment and Plan: Patient reports decreased appetite secondary to dysphagia. She likely has severe protein calorie malnutrition as her BMI is 16.9. She is tolerating her diet okay. Nutrition assessment patient and reports she has moderate non-severe protein calorie malnutrition secondary to chronic illness of COPD and poor diet. Patient has been started on ensure 3 times a day. Speech evaluate patient and reports swelling is within normal limits. Patient reports having chronic dry throat and sensation of food being stuck in her throat secondary to this. She is advised by speech therapy to alternate solids and liquids. Recommend outpatient evaluation by gastroenterology for dysphagia as well. (6) Pulmonary hypertension Current Visit: Yes Status: Acute Assessment and Plan: On echocardiogram patient has severe pulmonary hypertension Patient Multiple etiology is probably hypertension including COPD, heart failure. CT scan shows low probability of pulmonary embolism. Plan: outpatient evaluation by pulmonology - Time Spent with Patient Total time spent is greater than 50% in coordination of care (as documented) at patient's floor/unit and/or counseling patient: Internal Medicine: Result - Labs CBC & Chem 7: 06/18/18 01:17 06/19/18 04:16 Labs: BMP 06/19/18 04:16 Sodium 136 Potassium 3.8 Chloride 84 L Carbon Dioxide > 45 H* BUN 17 Creatinine 0.51 L Glucose 112 H Calcium 9.1 - ABG Interpretation ABG results: ABG ABG pH 7.35 pH Units (7.32-7.45) 06/18/18 02:14 ABG pCO2 86 mmHg (35-45) H* 06/18/18 02:14 ABG pO2 118 mmHg (85-104) H 06/18/18 02:14 ABG O2 Saturation 98 % (95-98) 06/18/18 02:14 PT/INR, D-dimer PT 12.9 Seconds (9.4-12.1) H 06/16/18 09:48 - Impressions Impressions Pulmonary Perfusion Imaging 06/18/18 14:11 IMPRESSION: Low probability for pulmonary embolus. Chest radiograph is recommended for further evaluation. D/ / William Acosta MD / William Acosta MD Interpreting Provider: William Acosta MD Chest X-Ray 06/19/18 00:01 IMPRESSION: Small right pleural effusion. Increased prominence of the interstitial markings since previous exam likely representing interstitial edema from mild CHF. Atypical infection is considered less likely. D/ / 06/19/2018 08:29:45 William Acosta MD / [email or web address] [email or web address] Interpreting Provider: William Acosta MD Consult Discharge Plan - Plan Referrals: Dina Connors MD [Primary Care Provider] - () <Dasha Henriquez - Last Filed: 06/19/18 21:51> Hospitalist Progress Note - Encounter Date of Encounter: 06/19/18 - Exam Vitals: Temp Pulse Resp BP Pulse Ox 98.7 F 98 16 110/72 94 06/19/18 19:00 06/19/18 19:00 06/19/18 20:22 06/19/18 19:00 06/19/18 20:22 - Assessment and Plan (1) Acute respiratory failure with hypoxia Current Visit: Yes Status: Acute (2) Hyperkalemia Current Visit: Yes Status: Acute (3) Acute congestive heart failure Current Visit: Yes Status: Acute (4) Elevated troponin Current Visit: Yes Status: Acute (5) COPD (chronic obstructive pulmonary disease) Current Visit: Yes Status: Acute (6) Dysphagia Current Visit: Yes Status: Acute (7) History of alcohol use Current Visit: Yes Status: Acute - Time Spent with Patient Total time spent is greater than 50% in coordination of care (as documented) at patient's floor/unit and/or counseling patient: Internal Medicine: Result - Labs CBC & Chem 7: 06/18/18 01:17 06/19/18 04:16 Labs: BMP 06/19/18 04:16 Sodium 136 Potassium 3.8 Chloride 84 L Carbon Dioxide > 45 H* BUN 17 Creatinine 0.51 L Glucose 112 H Calcium 9.1 - ABG Interpretation ABG results: ABG ABG pH 7.35 pH Units (7.32-7.45) 06/18/18 02:14 ABG pCO2 86 mmHg (35-45) H* 06/18/18 02:14 ABG pO2 118 mmHg (85-104) H 06/18/18 02:14 ABG O2 Saturation 98 % (95-98) 06/18/18 02:14 PT/INR, D-dimer PT 12.9 Seconds (9.4-12.1) H 06/16/18 09:48 - Impressions Impressions Pulmonary Perfusion Imaging 06/18/18 14:11 IMPRESSION: Low probability for pulmonary embolus. Chest radiograph is recommended for further evaluation. D/ / William Acosta MD / William Acosta MD Interpreting Provider: William Acosta MD Chest X-Ray 06/19/18 00:01 IMPRESSION: Small right pleural effusion. Increased prominence of the interstitial markings since previous exam likely representing interstitial edema from mild CHF. Atypical infection is considered less likely. D/ / 06/19/2018 08:29:45 William Acosta MD / [facility] Interpreting Provider: William Acosta MD - Attending Attestation I examined this patient and my medical decision-making was reviewed with the Resident Physician. I agree with the documented findings, disposition and treatment plan as described except to the extent set forth below. <Luis Emery - Last Filed: 06/19/18 09:56> (2) Acute congestive heart failure Qualifiers: Heart failure type: diastolic Qualified Code(s): I50.31 - Acute diastolic (congestive) heart failure (4) COPD (chronic obstructive pulmonary disease) Qualifiers: Emphysema type: unspecified Qualified Code(s): J43.9 - Emphysema, unspecified (5) Dysphagia Qualifiers: Dysphagia type: unspecified Qualified Code(s): R13.10 - Dysphagia, unspecified <Dasha Henriquez - Last Filed: 06/19/18 21:51> (3) Acute congestive heart failure Qualifiers: Heart failure type: diastolic Qualified Code(s): I50.31 - Acute diastolic (co ngestive) heart failure (5) COPD (chronic obstructive pulmonary disease) Qualifiers: Emphysema type: unspecified Qualified Code(s): J43.9 - Emphysema, unspecified (6) Dysphagia Qualifiers: Dysphagia type: unspecified Qualified Code(s): R13.10 - Dysphagia, unspecified
[2018-06-19] MEDS ORDERED: acetaZOLAMIDE 250 MG TABLET PO ONE (11:54)
[2018-06-19] MEDS: Thiamine (B-1) 100 MG TABLET PO SCH (12:55)
[2018-06-19] MEDS: predniSONE 20 MG TABLET PO SCH (12:55)
[2018-06-19] MEDS: levoFLOXacin 500 MG TABLET PO SCH (12:55)
[2018-06-19] MEDS: Vitamin B Complex/Vit C/Vit E 1 EACH TABLET PO SCH (12:55)
[2018-06-20] MEDS: Ipratropium/Albuterol Neb 3 ML IH SCH ×5 (03:54→20:47)
[2018-06-20 04:25] LABS: BUN/Creatinine Ratio 34 (6-26); Blood Urea Nitrogen 21 mg/dL (8-23); Calcium 9.6 mg/dL (8.6-10.3); Carbon Dioxide > 45 mEq/L (23-29); Chloride 87 mEq/L (98-107); Glucose 157 mg/dL (70-105); Osmolality,Calculated 290 (280-300); Potassium 3.6 mEq/L (3.5-5.1); Sodium 137 mEq/L (136-145); eGFR For Non-African Americans > 60 (> 60)
--- NOTE | 2018-06-20 08:27 | Internal Med Progress Note ---
<Luis Emery - Last Filed: 06/20/18 11:48> Hospitalist Progress Note - Encounter Date of Encounter: 06/20/18 Time of Encounter: 09:46 - Subjective Interval History: No acute events overnight. Patient was awake this morning eating breakfast. She reports her shortness of breath has improved dramatically. She also reports she has "feeling" in her legs as her edema has resolved. She is able to ambulate independently. - Exam Vitals: Temp Pulse Resp BP Pulse Ox 98.5 F 66 16 105/65 94 06/20/18 07:16 06/20/18 07:16 06/20/18 07:24 06/20/18 07:16 06/20/18 07:24 Exam: General: Awake, alert, pleasant Cardiovascualr: Sinus tachycardia, with no murmur, absent gallops or rubs, 1+ bilateral pedal edema, radial pulses 2 out of 4 Lungs: diminished breath sounds bilaterally, expiratory wheezing, Abdomen: Soft nontender, nondistended positive bowel sounds, absent hepatomegaly Skin: warm and dry, absent rash, absent open wounds and nodules, bilateral lower extremity erythema likely vascular changes. MSK: absent clubbing, cyanosis, joints without swelling Neuro: Cranial nerves II through XII intact, UE and LE sensation equal bilaterally, UE and LEstrength 5/5, Psych: Normal affect, good insight and judgment. - Assessment and Plan (1) Acute respiratory failure with hypoxia Current Visit: Yes Status: Acute Assessment and Plan: Patient has acute respiratory failure with hypoxia and hypercapnia secondary to acute CHF exacerbation and COPD exacerbation Patient reports before admission she had severe dyspnea and also difficulty getting up and down the stairs of her house which she was able to do easily in the past. At baseline patient was not on oxygen at home. She has extensive smoking hist ory. Currently she is requiring 4 L oxygen. We will continue DuoNeb's, steroids, Levaquin. We will qualify patient for oxygen and BiPAP today. (2) Acute congestive heart failure Current Visit: Yes Status: Acute Assessment and Plan: Patient has acute diastolic heart failure Echocardiogram shows LVEF of 60% with mildly dilated right ventricle with mild right ventricular hypokinesis and mild to moderate biatrial dilation. Severely calcified aortic valve with moderate to severe aortic stenosis and moderate aortic regurgitation. Furthermore patient has moderate to severe tricuspid regurgitation and severe pulmonary hypertension. Cardiology evaluated patient and recommended gentle diuresis and no further cardiology intervention inpatient. Patient can follow-up for valvular dysfunction in the outpatient setting. plan: Lower extremity edema resolved, Currently we will hold Lasix due to develo pment of contraction alkalosis. Patient given Diamox yesterday and today. (3) Elevated troponin Current Visit: Yes Status: Acute Assessment and Plan: Secondary to demand ischemia Initial troponin was 0.09 and repeat was 0.12 and then 0.12. EKG showed new T-wave inversions in leads 2 and 3. Patient was in a 60 started on heparin drip which was discontinued (4) COPD (chronic obstructive pulmonary disease) Current Visit: Yes Status: Acute Assessment and Plan: improving We will continue steroids, oxygen supplementation, nebulizers. and maria d talked to patient about smoking cessation (5) Dysphagia Current Visit: Yes Status: Acute Assessment and Plan: Patient reports decreased appetite secondary to dysphagia. She likely has severe protein calorie malnutrition as her BMI is 16.9. She is tolerating her diet okay. Nutrition assessment patient and reports she has moderate non-severe protein calorie malnutrition secondary to chronic illness of COPD and poor diet. Patient has been started on ensure 3 times a day. Speech evaluate patient and reports swelling is within normal limits. Patient reports having chronic dry throat and sensation of food being stuck in her throat secondary to this. She is advised by speech therapy to alternate solids and liquids. Recommend outpatient evaluation by gastroenterology for dysphagia as well. (6) Pulmonary hypertension Current Visit: Yes Status: Acute Assessment and Plan: On echocardiogram patient has severe pulmonary hypertension Patient Multiple etiology is probably hypertension including COPD, heart failure. VQ scan shows low probability of pulmonary embolism. Plan: outpatient evaluation by pulmonology - Time Spent with Patient Total time spent is greater than 50% in coordination of care (as documented) at patient's floor/unit and/or counseling patient: Internal Medicine: Result - Labs CBC & Chem 7: 06/18/18 01:17 06/20/18 03:47 Labs: BMP 06/20/18 03:47 Sodium 137 Potassium 3.6 Chloride 87 L Carbon Dioxide > 45 H* BUN 21 Creatinine 0.62 Glucose 157 H Calcium 9.6 - ABG Interpretation ABG results: ABG ABG pH 7.35 pH Units (7.32-7.45) 06/18/18 02:14 ABG pCO2 86 mmHg (35-45) H* 06/18/18 02:14 ABG pO2 118 mmHg (85-104) H 06/18/18 02:14 ABG O2 Saturation 98 % (95-98) 06/18/18 02:14 PT/INR, D-dimer PT 12.9 Seconds (9.4-12.1) H 06/16/18 09:48 - Impressions Impressions Chest X-Ray 06/19/18 00:01 IMPRESSION: Small right pleural effusion. Increased prominence of the interstitial markings since previous exam likely representing interstitial edema from mild CHF. Atypical infection is considered less likely. D/ / 06/19/2018 08:29:45 William Acosta MD / evelina Interpreting Provider: William Acosta MD Consult Discharge Plan - Plan Referrals: Dina Connors MD [Primary Care Provider] - () <Amy Acevedo - Last Filed: 06/20/18 14:23> Hospitalist Progress Note - Encounter Date of Encounter: 06/20/18 - Exam Vitals: Temp Pulse Resp BP Pulse Ox 98.9 F 111 18 114/66 93 06/20/18 11:41 06/20/18 11:41 06/20/18 11:41 06/20/18 11:41 06/20/18 11:41 - Assessment and Plan (1) Acute respiratory failure with hypoxia Current Visit: Yes Status: Acute (2) Hyperkalemia Current Visit: Yes Status: Acute (3) Acute congestive heart failure Current Visit: Yes Status: Acute (4) Elevated troponin Current Visit: Yes Status: Acute (5) COPD (chronic obstructive pulmonary disease) Current Visit: Yes Status: Acute (6) Dysphagia Current Visit: Yes Status: Acute (7) History of alcohol use Current Visit: Yes Status: Acute - Time Spent with Patient Total time spent is greater than 50% in coordination of care (as documented) at patient's floor/unit and/or counseling patient: Internal Medicine: Result - Labs CBC & Chem 7: 06/18/18 01:17 06/20/18 03:47 Labs: BMP 06/20/18 03:47 Sodium 137 Potassium 3.6 Chloride 87 L Carbon Dioxide > 45 H* BUN 21 Creatinine 0.62 Glucose 157 H Calcium 9.6 - ABG Interpretation ABG results: ABG ABG pH 7.35 pH Units (7.32-7.45) 06/18/18 02:14 ABG pCO2 86 mmHg (35-45) H* 06/18/18 02:14 ABG pO2 118 mmHg (85-104) H 06/18/18 02:14 ABG O2 Saturation 98 % (95-98) 06/18/18 02:14 PT/INR, D-dimer PT 12.9 Seconds (9.4-12.1) H 06/16/18 09:48 - Attending Attestation I examined this patient and my medical decision-making was reviewed with the Resident Physician Dr Emery. I agree with the documented findings, disposition and treatment plan as described except to the extent set forth below. Mrs Abad is admitted with acute resp failure and being treated for COPDE and CHF exacerbation awake, at bedside. remains on o2 nc. no sob at htis time, denies cough, wheezing, cp, pressure or palpitations. no fevers or chills le edema much improved gen- alert, awake,appears stated age, frail eyes- pupils equal round cv- reg rate and rhythm, normal s1,s2, no murmurs appreciated, no le edema, no jvd lungs- ctabl, no wheezing, rhonchi or crackles, normal resp effort on o2 nc neuro- AAOx3 Acute Hypoxic Resp Failure 2/2 COPDE, acute diastolic CHF Complicated by Severe Pulm HTN -cont o2, levaquin, pred, nebs -appears euvolemic to dry now, hold further lasix and monitor daily Mod to Severe Mod to Severe TR -cards following, outpt further eval of valvular disease. Not a candidate for intervention at this time -avoid hypovolemia -pt/ aware of diagnosis and need for fu Type II NC 2/2 demand ischemia with hypoxia- cards followed, appreciate recs, echo reviewed, will fu outpt further diagnoses and plan as noted by resident <Luis Emeryeriksaqib - Last Filed: 06/20/18 11:48> (2) Acute congestive heart failure Qualifiers: Heart failure type: diastolic Qualified Code(s): I50.31 - Acute diastolic (congestive) heart failure (4) COPD (chronic obstructive pulmonary disease) Qualifiers: Emphysema type: unspecified Qualified Code(s): J43.9 - Emphysema, unspecified (5) Dysphagia Qualifiers: Dysphagia type: unspecified Qualified Code(s): R13.10 - Dysphagia, unspecified <Amy Acevedo - Last Filed: 06/20/18 14:23> (3) Acute congestive heart failure Qualifiers: Heart failure type: diastolic Qualified Code(s): I50.31 - Acute diastolic (congestive) heart failure (5) COPD (chronic obstructive pulmonary disease) Qualifiers: Emphysema type: unspecified Qualified Code(s): J43.9 - Emphysema, unspecified (6) Dysphagia Qualifiers: Dysphagia type: unspecified Qualified Code(s): R13.10 - Dysphagia, unspecified
[2018-06-20] MEDS ORDERED: acetaZOLAMIDE 250 MG TABLET PO ONE (08:28)
[2018-06-20] MEDS: predniSONE 20 MG TABLET PO SCH (10:20)
[2018-06-20] MEDS: Thiamine (B-1) 100 MG TABLET PO SCH (10:21)
[2018-06-20] MEDS: Vitamin B Complex/Vit C/Vit E 1 EACH TABLET PO SCH (10:21)
[2018-06-20] MEDS: Folic Acid 1 MG TABLET PO SCH (10:21)
[2018-06-20] MEDS: levoFLOXacin 500 MG TABLET PO SCH (10:21)
[2018-06-21] MEDS: Ipratropium/Albuterol Neb 3 ML IH SCH ×6 (00:22→19:59)
[2018-06-21 05:45] LABS: BUN/Creatinine Ratio 38 (6-26); Blood Urea Nitrogen 19 mg/dL (8-23); Carbon Dioxide 45 mEq/L (23-29); Chloride 90 mEq/L (98-107); Glucose 120 mg/dL (70-105); Osmolality,Calculated 285 (280-300); Potassium 3.1 mEq/L (3.5-5.1); Sodium 136 mEq/L (136-145); eGFR For Non-African Americans > 60 (> 60)
--- NOTE | 2018-06-21 07:21 | Discharge Summary ---
<Luis Emery - Last Filed: 06/21/18 09:51> Date of Encounter: 06/21/18 Time of Encounter: 09:51 - Discharge Diagnosis (1) Acute respiratory failure with hypoxia Priority: Primary Status: Resolved (2) Acute congestive heart failure Priority: Secondary Status: Resolved Qualifiers: Heart failure type: diastolic Qualified Code(s): I50.31 - Acute diastolic (congestive) heart failure (3) Elevated troponin Priority: Secondary Status: Resolved (4) COPD (chronic obstructive pulmonary disease) Priority: Secondary Status: Chronic Qualifiers: COPD type: emphysema Emphysema type: unspecified Qualified Code(s): J43.9 - Emphysema, unspecified (5) Dysphagia Priority: Secondary Status: Resolved Qualifiers: Dysphagia type: unspecified Qualified Code(s): R13.10 - Dysphagia, unspecified (6) Pulmonary hypertension Priority: Secondary Status: Chronic Hospital course: Ms. Abad is a 62 year old female presented with chief complaint of shortness of breath and lower extremity edema. Patient was initially at [facility] and was found to be hypoxemic with an oxygen saturation of 55% on room air. She was immediately placed on BiPAP to improve her oxygen saturation to 90%. Patient reports that in the past week she has had increasing shortness of breath and lower extremity edema to the point she is not able to ambulate or has sensation in her legs. She has not seen a physician in 5 years. She does not have any formal diagnosis of COPD, CHF. And the only medication patient takes at home as Tylenol. Patient has a 20 pack year smoking history. Furthermore patient drinks 6-8 beers daily. She reports she has lost significant amount of weight in the past few years and has a BMI of 16.2. On admission patient was found to be in acute congestive heart failure, COPD exacerbation, and hyperkalemic and elevated troponin. She was given Lasix and Kayexalate in the emergency department. Patient was also started on CIWa protocol. During her hospital stay she did not have signs and symptoms of alcohol withdrawal. Patient was diuresed with IV Lasix. Echocardiogram showed LVEF of 60% with mild left ventricular diastolic dysfunction, mildly dilated right ventricular and mild right ventricular hypokinesis, [id number] biatrial dilation, severely calcified aortic valve, moderate severe aortic stenosis and moderate regurgitation, mild aortic root dilation of the ascending aorta of 3.8 cm, moderate to severe tricuspid regurgitation, severe pulmonary hypertension. Cardiology was consulted and recommended continued diuresis and follow-up with them in the outpatient setting for further evaluation of valvular disease and congestive heart failure. Patient was not started on a diuretic or an flako/RB as her blood pressure was in the systolics 100 and would likely not tolerate it. Furthermore patient diuresed very well and is euvolemic on exam. She did develop hypercarbia and was given Diamox. Patient will need to be on a strict fluid restricted diet of 2 L and a low-salt diet. Furthermore patient was started on Levaquin, steroids, nebulizer, and oxygen supplementation for COPD exacerbation. Her respiratory status did improve and she qualified for 4 L oxygen via nasal cannula and BiPAP at night. She was educated on smoking cessation. She will have a pulmonology follow-up for COPD and will need PFTs. Next patient also complained of dysphasia and significant weight loss in the past few years. Her BMI 16.9 and she was diagnosed with non-severe protein calorie malnutrition and started on ensure 3 times a day. Speech evaluated patient for dysphagia and did not find any acute issues. Recommend patient get formal evaluation by gastroneurology for dysphagia. Furthermore for pulmonary hypertension patient underwent VQ scan which was negative for PE. She will need further evaluation of this by pulmonology in the outpatient setting. Patient qualified for physical rehabilitation and will be discharged to [facility] Discharge discussed with: patient, family - Time Spent with Patient Total time spent providing and/or coordinating discharge services: - Discharge Medications Prescriptions: New Albuterol Sulfate [Albuterol Inhaler] 1 puff IH Q4HR PRN #1 hfa.aer.ad PRN Reason: Shortness Of Breath Ipratropium/Albuterol Neb [Duoneb] 3 ml IH [id number] inhsol Budesonide/Formoterol 160/4.5 [Symbicort 160/4.5] 2 puff IH BIDR #1 hfa.aer.ad Nebulizer [Aeroeclipse] 1 each MC Q6H PRN #1 each PRN Reason: Shortness Of Breath predniSONE [PredniSONE] 10 mg PO TAPER #50 tablet No Action Acetaminophen [Tylenol] 500 mg PO PRN PRN PRN Reason: PAIN/FEVER Home Medications: Acetaminophen [Tylenol] 500 mg PO PRN PRN 06/18/18 [History] Albuterol Sulfate [Albuterol Inhaler] 1 puff IH Q4HR PRN #1 hfa.aer.ad 06/21/18 [Rx] Budesonide/Formoterol 160/4.5 [Symbicort 160/4.5] 2 puff IH BIDR #1 hfa.aer.ad 06/21/18 [Rx] Ipratropium/Albuterol Neb [Duoneb] 3 ml IH [id number] inhsol 06/21/18 [Rx] Nebulizer [Aeroeclipse] 1 each MC Q6H PRN #1 each 06/21/18 [Rx] predniSONE [PredniSONE] 10 mg PO TAPER #50 tablet 06/21/18 [Rx] Allergies/Adverse Reactions: Allergy/AdvReac Type Severity Reaction Status Date / Time No Known Drug Allergies Allergy Unknown unknown Verified 06/18/18 09:10 Date of admission: 06/16/18 03:57 Primary care physician: Dina Connors, Consults: 06/16/18 03:30 Consult to Occupational Therapy [CONS] Routine Comment: Evaluate, develop and implement POC Reason for Consult: weakness Does patient have active BEDREST order?: No Is patient medically & hemodynamically stable?: Yes Patient assessed for mobility or mobilized this visit?: Yes Consult to Physical Therapy [CONS] Routine Comment: Evaluate, develop and implement POC Reason for Consult: weakness Does patient have active BEDREST order?: No Is patient medically & hemodynamically stable?: Yes Patient assessed for mobility or mobilized this visit?: Yes Consult to Share Holder [CONS] Routine Reason for SW Consult: advanced directives 06/16/18 04:00 Consult to Cardiac Rehabilitation-Phase1 [CONS] Routine Comment: Reason for Consult: heart failure Call Completed: Yes Consult to Cardiology [CONS] Routine Comment: Consulting Provider: Cardiology Nahomi Reason for Consult: New onset CHF Call Completed: No Consult to Nurse Navigator [CONS] Routine Comment: CHF 06/16/18 08:47 Consult to Nutrition [CONS] Routine Comment: Consulting Provider: NUTRITION Reason for Dietary Consult: Other Discharging clinician: Luis Emery Anticipated date of discharge: 06/21/18 - Constitutional Vitals: Temp Pulse Resp BP Pulse Ox 98.7 F 77 20 103/66 96 06/21/18 07:08 06/21/18 07:08 06/21/18 07:08 06/21/18 07:08 06/21/18 07:08 Exam: General: Awake, alert, pleasant Cardiovascualr: Sinus tachycardia, with no murmur, absent gallops or rubs, absent pedal edema, radial pulses 2 out of 4 Lungs: diminished breath sounds bilaterally, expiratory wheezing, Abdomen: Soft nontender, nondistended positive bowel sounds, absent hepatomegaly Skin: warm and dry, absent rash, absent open wounds and nodules, bilateral lower extremity erythema likely vascular changes. MSK: absent clubbing, cyanosis, joints without swelling Neuro: Cranial nerves II through XII intact, UE and LE sensation equal bilaterally, UE and LEstrength 5/5, Psych: Normal affect, good insight and judgment. - Patient Status Disposition: Transfer SNF Condition: Fair Functional capacity at discharge: independent ambulation Overall status at discharge: patient is progressing back to baseline - Discharge Instructions Follow Up With: Dina Connors MD [Primary Care Provider] - () Mely Hussein MD [Partnered Physician] - (Follow up appointment has been requested. Office will call with date and time of appointment. ) Abdulkadir Rosas MD [Partnered Physician] - (Follow up appointment has been requested. Office will call with date and time of appointment. ) - Diet and Activity Activity: as per physical therapy Diet: low fat, low cholesterol, low salt diet, other (Fluid restrict to 2L and salt restriction. ) <Amy Acevedo - Last Filed: 06/21/18 13:11> - NOTES TO OUTPATIENT PROVIDER Notes to Outpatient Provider: requires cardiology follow up for valvular disease and CHF, Pulm follow up for COPD, and would recommend outpt eval of dysphagia. D C to SNF Date of Encounter: 06/21/18 - Discharge Diagnosis (1) Acute respiratory failure with hypoxia Status: Resolved (2) Hyperkalemia Status: Acute (3) Acute congestive heart failure Status: Resolved Qualifiers: Heart failure type: diastolic Qualified Code(s): I50.31 - Acute diastolic (congestive) heart failure (4) Elevated troponin Status: Resolved (5) COPD (chronic obstructive pulmonary disease) Status: Chronic Qualifiers: COPD type: emphysema Emphysema type: unspecified Qualified Code(s): J43.9 - Emphysema, unspecified (6) Dysphagia Status: Resolved Qualifiers: Dysphagia type: unspecified Qualified Code(s): R13.10 - Dysphagia, unspecified (7) History of alcohol use Status: Acute Hospital course: Ms. Abad is a 62 year old female - Time Spent with Patient Total time spent providing and/or coordinating discharge services: Time spent: Greater than 30 minutes (40 min) Date of admission: 06/16/18 03:57 Primary care physician: Dina Connors, Consults: 06/16/18 03:30 Consult to Occupational Therapy [CONS] Routine Comment: Evaluate, develop and implement POC Reason for Consult: weakness Does patient have active BEDREST order?: No Is patient medically & hemodynamically stable?: Yes Patient assessed for mobility or mobilized this visit?: Yes Consult to Physical Therapy [CONS] Routine Comment: Evaluate, develop and implement POC Reason for Consult: weakness Does patient have active BEDREST order?: No Is patient medically & hemodynamically stable?: Yes Patient assessed for mobility or mobilized this visit?: Yes Consult to Share Holder [CONS] Routine Reason for SW Consult: advanced directives 06/16/18 04:00 Consult to Cardiac Rehabilitation-Phase1 [CONS] Routine Comment: Reason for Consult: heart failure Call Completed: Yes Consult to Cardiology [CONS] Routine Comment: Consulting Provider: Cardiology Reardan Reason for Consult: New onset CHF Call Completed: No Consult to Nurse Navigator [CONS] Routine Comment: CHF 06/16/18 08:47 Consult to Nutrition [CONS] Routine Comment: Consulting Provider: NUTRITION Reason for Dietary Consult: Other - Constitutional Vitals: Temp Pulse Resp BP Pulse Ox 98.0 F 95 17 106/61 95 06/21/18 12:04 06/21/18 12:04 06/21/18 12:04 06/21/18 12:04 06/21/18 12:04 - Attending Attestation I examined this patient and my medical decision-making was reviewed with the Resident Physician Dr Emery. I agree with the documented findings, disposition and treatment plan as described except to the extent set forth below. Mrs Abad is admitted with acute resp failure and being treated for COPDE and CHF exacerbation. She is stable for dc to snf with outpt follow up awake, no family present. no sob on current 02. denies le edema, cp, pressure or palpitations. no fevers, chills. cough without sputum gen- alert, awake,appears stated age, frail eyes- pupils equal round cv- reg rate and rhythm, normal s1,s2, no murmurs appreciated, no le edema, no jvd lungs- ctabl, no wheezing, rhonchi or crackles, normal resp effort on o2 nc abd- soft, non tender, non distended neuro- AAOx3 Acute Hypoxic Resp Failure 2/2 COPDE, acute diastolic CHF Complicated by Severe Pulm HTN -cont o2, levaquin course completes today, pred taper, nebs -appears euvolemic to dry now, hold further lasix on dc to avoid hypovolemia with -outpt pulm and cards follow up Mod to Severe Mod to Severe TR -cards followed, outpt further eval of valvular disease. Not a candidate for intervention at this time -avoid hypovolemia -pt/ aware of diagnosis and need for fu Type II SC 2/2 demand ischemia with hypoxia- cards followed, appreciate recs, echo reviewed, will fu outpt Hypokalemia- PO repletion dispo to snf further diagnoses and plan as noted by resident time spent on dc 40 min Addendum entered and electronically signed by Dasha Henriquez MD 06/22/18 14:25: Heart failure with preserved ejection fraction: acute and chronic. Addendum entered and electronically signed by Amy Acevedo DO 06/22/18 17:36: pt did not dc 06/21 as snf prior auth not done. no change to course. remains medically stable for dc to snf today 06/22. no change to plan as documented in dc summary above
--- NOTE | 2018-06-21 07:21 | Physician Discharge Referral ---
<Luis Emery - Last Filed: 06/21/18 10:09> [facility] Referral Info Transfer To: [facility] Provider in Charge: Kristina Provider in Charge after Transfer: PCP Institutional Level of Care: Skilled - Diagnosis (1) Acute respiratory failure with hypoxia Priority: Primary Status: Resolved (2) Acute congestive heart failure Priority: Secondary Status: Resolved (3) Elevated troponin Priority: Secondary Status: Resolved (4) COPD (chronic obstructive pulmonary disease) Priority: Secondary Status: Chronic (5) Dysphagia Priority: Secondary Status: Resolved (6) Pulmonary hypertension Priority: Secondary Status: Chronic - Transfer Medications Prescriptions: Albuterol Sulfate [Albuterol Inhaler] 1 puff IH Q4HR PRN #1 hfa.aer.ad PRN Reason: Shortness Of Breath Budesonide/Formoterol 160/4.5 [Symbicort 160/4.5] 2 puff IH BIDR #1 hfa.aer.ad Nebulizer [Aeroeclipse] 1 each MC Q6H PRN #1 each PRN Reason: Shortness Of Breath predniSONE [PredniSONE] 10 mg PO TAPER #50 tablet Home Medications: Acetaminophen [Tylenol] 500 mg PO PRN PRN 06/18/18 [History] Albuterol Sulfate [Albuterol Inhaler] 1 puff IH Q4HR PRN #1 hfa.aer.ad 06/21/18 [Rx] Budesonide/Formoterol 160/4.5 [Symbicort 160/4.5] 2 puff IH BIDR #1 hfa.aer.ad 06/21/18 [Rx] Ipratropium/Albuterol Neb [Duoneb] 3 ml IH [id number] inhsol 06/21/18 [Rx] Nebulizer [Aeroeclipse] 1 each MC Q6H PRN #1 each 06/21/18 [Rx] predniSONE [PredniSONE] 10 mg PO TAPER #50 tablet 06/21/18 [Rx] Allergies/Adverse Reactions: Allergy/AdvReac Type Severity Reaction Status Date / Time No Known Drug Allergies Allergy Unknown unknown Verified 06/18/18 09:10 - Respiratory Orders Oxygen / L per min (4L), Other (Bipap at night) Smoking Cessation: Smoking cessation has been advised. For more information, call the [place] Tobacco Quit Line at 3-930-FCAONOW. - Advance Directives Code Status: DNR-Arrest/Don't Intubate - Mobility Orders Ambulate - Rehabiliation Orders Rehab Potential: Fair Rehab Orders: Evaluation for Physical Therapy, Evaluation for Occupational Therapy - Treatments Skin tear care topically daily PRN per policy - Diet Orders No Added Salt (SERGIO), Cardiac House Supplement per Dietary: ensure tID CERTIFICATION: I certify that the transfer of the above named patient to an Extended Care Facility is necessary for the continuing treatment of the diagnosis listed. The above information is true and accurate reflection of patient's current conditio n. Confidential - Redisclosure prohibited without a patient's written consent. <Amy Acevedo - Last Filed: 06/21/18 13:12> - Diagnosis (1) Acute respiratory failure with hypoxia Status: Resolved (2) Hyperkalemia Status: Acute (3) Acute congestive heart failure Status: Resolved (4) Elevated troponin Status: Resolved (5) COPD (chronic obstructive pulmonary disease) Status: Chronic (6) Dysphagia Status: Resolved (7) History of alcohol use Status: Acute - Respiratory Orders Smoking Cessation: Smoking cessation has been advised. For more information, call the [place] Tobacco Quit Line at 8-847-GFKSNOW. CERTIFICATION: I certify that the transfer of the above named patient to an Extended Care Facility is necessary for the continuing treatment of the diagnosis listed. The above information is true and accurate reflection of patient's current condition. Confidential - Redisclosure prohibited without a patient's written consent.
[2018-06-21] MEDS: levoFLOXacin 500 MG TABLET PO SCH (09:19)
[2018-06-21] MEDS: Folic Acid 1 MG TABLET PO SCH (09:19)
[2018-06-21] MEDS: Thiamine (B-1) 100 MG TABLET PO SCH (09:19)
[2018-06-21] MEDS: Vitamin B Complex/Vit C/Vit E 1 EACH TABLET PO SCH (09:19)
[2018-06-21] MEDS: predniSONE 20 MG TABLET PO SCH (09:19)
[2018-06-21] MEDS: Potassium Chloride Elixir 20 MEQ/15 ML UDC PO SCH ×2 (12:19→18:20)
[2018-06-21] MEDS ORDERED: Potassium Chloride Elixir 20 MEQ/15 ML UDC PO SCH (18:00)
[2018-06-22] MEDS: Ipratropium/Albuterol Neb 3 ML IH SCH ×4 (00:17→11:46)
[2018-06-22 07:18] VITALS: BP 107/72
--- NOTE | 2018-06-22 08:15 | Internal Med Progress Note ---
<Luis Emery - Last Filed: 06/22/18 10:17> Hospitalist Progress Note - Encounter Date of Encounter: 06/22/18 Time of Encounter: 10:17 - Subjective Interval History: No acute events overnight. Patient did not have any complaints. - Exam Vitals: Temp Pulse Resp BP Pulse Ox 97.4 F L 96 14 107/72 95 06/22/18 07:13 06/22/18 07:13 06/22/18 07:13 06/22/18 07:13 06/22/18 07:13 Exam: General: Awake, alert, pleasant Cardiovascualr: Sinus tachycardia, with no murmur, absent gallops or rubs, absent pedal edema, radial pulses 2 out of 4 Lungs: diminished breath sounds bilaterally, expiratory wheezing, Abdomen: Soft nontender, nondistended positive bowel sounds, absent hepatomegaly Skin: warm and dry, absent rash, absent open wounds and nodules, bilateral lower extremity erythema likely vascular changes. MSK: absent clubbing, cyanosis, joints without swelling Neuro: Cranial nerves II through XII intact, UE and LE sensation equal bilaterally, UE and LEstrength 5/5, Psych: Normal affect, good insight and judgment. - Assessment and Plan (1) Acute respiratory failure with hypoxia Status: Resolved Assessment and Plan: Secondary to CHF exacerbation, COPD exacerbation Patient has qualified for 4 L oxygen and BiPAP. Awaiting discharge. (2) Acute congestive heart failure Status: Resolved Assessment and Plan: Resolved. (3) Elevated troponin Status: Resolved (4) COPD (chronic obstructive pulmonary disease) Status: Chronic Assessment and Plan: Resolved. Continue DuoNeb, steroids. Finish Levaquin therapy. (5) Dysphagia Status: Resolved Assessment and Plan: Patient reports decreased appetite secondary to dysphagia. She likely has severe protein calorie malnutrition as her BMI is 16.9. She is tolerating her diet okay. Nutrition assessment patient and reports she has moderate non-severe protein calorie malnutrition secondary to chronic illness of COPD and poor diet. Pat ient has been started on ensure 3 times a day. Speech evaluate patient and reports swelling is within normal limits. Patient reports having chronic dry throat and sensation of food being stuck in her throat secondary to this. She is advised by speech therapy to alternate solids and liquids. Recommend outpatient evaluation by gastroenterology for dysphagia as well. (6) Pulmonary hypertension Status: Chronic Assessment and Plan: On echocardiogram patient has severe pulmonary hypertension Patient Multiple etiology is probably hypertension including COPD, heart failure. VQ scan shows low probability of pulmonary embolism. Plan: outpatient evaluation by pulmonology - Time Spent with Patient Total time spent is greater than 50% in coordination of care (as documented) at patient's floor/unit and/or counseling patient: Internal Medicine: Result - Labs CBC & Chem 7: 06/18/18 01:17 06/21/18 04:47 - ABG Interpretation ABG results: ABG ABG pH 7.35 pH Units (7.32-7.45) 06/18/18 02:14 ABG pCO2 86 mmHg (35-45) H* 06/18/18 02:14 ABG pO2 118 mmHg (85-104) H 06/18/18 02:14 ABG O2 Saturation 98 % (95-98) 06/18/18 02:14 PT/INR, D-dimer PT 12.9 Seconds (9.4-12.1) H 06/16/18 09:48 Consult Discharge Plan - Plan Instructions: Heart Failure (DC), Acute Respiratory Distress Syndrome (DC), Chronic Obstructive Pulmonary Disease (DC) Referrals: Dina Connors MD [Primary Care Provider] - () Mely Hussein MD [Partnered Physician] - (Follow up appointment has been requested. Office will call with date and time of appointment. ) Abdulkadri Rosas MD [Partnered Physician] - (Follow up appointment has been requested. Office will call with date and time of appointment. ) Prescriptions: Albuterol Sulfate [Albuterol Inhaler] 1 puff IH Q4HR PRN #1 hfa.aer.ad PRN Reason: Shortness Of Breath Budesonide/Formoterol 160/4.5 [Symbicort 160/4.5] 2 puff IH BIDR #1 hfa.aer.ad Nebulizer [Aeroeclipse] 1 each MC Q6H PRN #1 each PRN Reason: Shortness Of Breath predniSONE [PredniSONE] 10 mg PO TAPER #50 tablet <Amy Acevedo - Last Filed: 06/22/18 17:35> Hospitalist Progress Note - Encounter Date of Encounter: 06/22/18 - Exam Vitals: Temp Pulse Resp BP Pulse Ox 97.4 F L 96 20 107/72 91 06/22/18 07:13 06/22/18 07:13 06/22/18 07:56 06/22/18 07:13 06/22/18 07:56 - Assessment and Plan (1) Acute respiratory failure with hypoxia Status: Resolved (2) Hyperkalemia Status: Acute (3) Acute congestive heart failure Status: Resolved (4) Elevated troponin Status: Resolved (5) COPD (chronic obstructive pulmonary disease) Status: Chronic (6) Dysphagia Status: Resolved (7) History of alcohol use Status: Acute - Time Spent with Patient Total time spent is greater than 50% in coordination of care (as documented) at patient's floor/unit and/or counseling patient: Internal Medicine: Result - Labs CBC & Chem 7: 06/18/18 01:17 06/21/18 04:47 - ABG Interpretation ABG results: ABG ABG pH 7.35 pH Units (7.32-7.45) 06/18/18 02:14 ABG pCO2 86 mmHg (35-45) H* 06/18/18 02:14 ABG pO2 118 mmHg (85-104) H 06/18/18 02:14 ABG O2 Saturation 98 % (95-98) 06/18/18 02:14 PT/INR, D-dimer PT 12.9 Seconds (9.4-12.1) H 06/16/18 09:48 - Attending Attestation I examined this patient and my medical decision-making was reviewed with the Resident Physician Dr Emery. I agree with the documented findings, disposition and treatment plan as described except to the extent set forth below. Mrs Abad is admitted with acute resp failure and being treated for COPDE and CHF exacerbation. She is stable for dc to snf with outpt follow up SNF prior auth not available 06/21 so dc 06/22 awake, no family present. sob and cough much better. no cp, pressure or palpitations. gen- alert, awake,appears stated age cv- reg rate and rhythm, normal s1,s2, no murmurs appreciated, no le edema, no jvd lungs- ctabl, no wheezing, rhonchi or crackles, normal resp effort on o2 nc abd- soft, non tender, non distended neuro- AAOx3 Acute Hypoxic Resp Failure 2/2 COPDE, acute diastolic CHF Complicated by Severe Pulm HTN -cont o2, levaquin course completed pred taper, nebs -appears euvolemic to dry now, hold further lasix on dc to avoid hypovolemia with -outpt pulm and cards follow up Mod to Severe Mod to Severe TR -cards followed, outpt further eval of valvular disease. 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 Qualified Code(s): J43.9 - Emphysema, unspecified (5) Dysphagia Qualifiers: Dysphagia type: unspecified Qualified Code(s): R13.10 - Dysphagia, unspecified <Amy Acevedo - Last Filed: 06/22/18 17:35> (3) Acute congestive heart failure Qualifiers: Heart failure type: diastolic Qualified Code(s): I50.31 - Acute diastolic (congestive) heart failure (5) COPD (chronic obstructive pulmonary disease) Qualifiers: COPD type: emphysema Emphysema type: unspecified Qualified Code(s): J43.9 - Emphysema, unspecified (6) Dysphagia Qualifiers: Dysphagia type: unspecified Qualified Code(s): R13.10 - Dysphagia, unspecified
[2018-06-22] MEDS: Vitamin B Complex/Vit C/Vit E 1 EACH TABLET PO SCH (08:46)
[2018-06-22] MEDS: Folic Acid 1 MG TABLET PO SCH (08:46)
[2018-06-22] MEDS: Thiamine (B-1) 100 MG TABLET PO SCH (08:46)
[2018-06-22] MEDS: predniSONE 20 MG TABLET PO SCH (08:46)
== END 2018-06-22 16:53 | DRG 189 ==
LOC: 3BNU → SUATTDRO 03:57
PROVIDERS: ADMIT Internal Medicine; ATTEND Internal Medicine